=== PATIENT | male | born 1980 | race Caucasian/White ===

== ENCOUNTER 2018-01-08 14:26 | Emergency (ER) | payer OTHER, SELFPAY | END 2018-01-08 19:20 | disposition home or self-care (01) | PROVIDERS: Emergency Provider Nurse Practitioner Family; Visit Provider Nurse Practitioner Family | DX: R10.9 Unspecified abdominal pain (principal) | CPT/HCPCS: 74177; 80053; 81003; 83690; 85025; 96361; 96374; 99058; 99284; J1885; Q9967 ==

== ENCOUNTER 2022-08-03 09:33 | Emergency (ER) | payer OTHER, SELFPAY ==
[2022-08-03 09:38] VITALS: BP 120/85; PULSE 90; RESP 14; TEMP 36.2; O2SAT 98; BMI 26.6
--- NOTE | 2022-08-03 09:40 | DI.RAD.S_ITS ---
PROCEDURE: XR ANKLE RT MIN 3V INDICATIONS: rolled ankle TECHNIQUE: 3 views of the ankle were acquired. COMPARISON: [facility] [place], CR, XR FOOT 3+ VIEWS RIGHT, 07/03/2022, 11:58. FINDINGS: Bones: On the frontal view, a small ill-defined density is present interposed between the lateral process of the talus and fibular tip, which could represent an acute fracture fragment. No definite donor site identified however. Ankle mortise is normally aligned. No suspicious bony lesions. Soft tissues: A tibiotalar joint effusion is present. There is lateral soft tissue swelling. IMPRESSION: A small ill-defined density is present interposed between the lateral process of the talus and fibular tip which could represent an acute fracture fragment. No definite donor site identified however. If symptoms persist or otherwise clinically indicated, follow-up radiographs and/or CT may be helpful for further evaluation. Dictated by: Abel Lynch M.D. on 08/03/2022 at 10:10 Approved by: Abel Lynch M.D. on 08/03/2022 at 10:17
--- NOTE | 2022-08-03 11:40 | ED_ITS ---
HPI - Extremity Injury (Lower) General Chief Complaint: Extremity Injury, Lower Stated Complaint: rolled ankle think its broken Time Seen by Provider: 08/03/22 11:33 Source: patient Mode of arrival: Wheelchair History of Present Illness HPI Narrative: Patient is a healthy 41-year-old male who presents with right ankle pain and swelling. He was at work when he tripped on a cable bit rolling his ankle. He initially was ambulatory but now is not ambulatory. Having significant pain and swelling. Related Data Previous Rx's Medication Instructions Recorded hydrocodone 5 mg-acetaminophen 325 1 tab PO Q6H PRN pain #10 tabs 08/03/22 mg tablet Allergies Allergy/AdvReac Type Severity Reaction Status Date / Time No Known Drug Allergies Allergy Verified 08/03/22 09:38 Review of Systems Review of Systems Narrative: GENERAL: Denies chills,fever HEENT: Denies throat pain RESPIRATORY: Denies dyspnea, cough, wheezing CARDIOVASCULAR: Denies chest pain, palpitations GASTROINTESTINAL: Denies nausea, vomiting MUSCULOSKELETAL: See HPI SKIN: No rash, no laceration, no pruritus NEUROLOGIC: Denies weakness, dizziness, headache, numbness 8 point review of systems is negative except for those stated above and HPI Patient History Social History Smoking Status: Current every day smoker Smoking Status: Current every day smoker alcohol intake frequency: holidays/special occasions only Substance Use Type: does not use Exam Initial Vital Signs Initial Vital Signs: Vital Signs Temperature 97.2 F L 08/03/22 09:38 Pulse Rate 90 08/03/22 09:38 Respiratory Rate 14 08/03/22 09:38 Blood Pressure 120/85 08/03/22 09:38 Pulse Oximetry 98 08/03/22 09:38 Oxygen Delivery Method 08/03/22 09:38 GENERAL: Well-appearing, well-nourished and in no acute distress. CARDIOVASCULAR: peripheral pulses in tact, cap refill <2 sec RESPIRATORY: No respiratory distress, speaks in full sentences without difficulty EXTREMITIES: Normal range of motion, no clubbing or edema. Neurovascularly intact Right lower extremity significant lateral swelling over lateral malleoli distal pedal pulses intact Achilles nontender calf is soft knee states NEUROLOGICAL: Cranial nerves II through XII grossly intact. Normal gait and speech. SKIN: Warm, dry, no petechiae, no rashes or lesions. Course Orders Ordered: ED Orders 08/03/22 09:40 XR ankle RT min 3V Stat Vital Signs Vital signs: Vital Signs - 8 hr 08/03/22 12:05 Pulse Rate 75 Respiratory Rate 18 Blood Pressure 120/80 Pulse Oximetry 98 Oxygen Delivery Method Room Air MDM - Extremity Injury (Lower) Imaging Data Extremity x-ray #1: Radiologist's Impression: Signed Patient: Dileep Lucio MR#: [id number] : 1980 Acct:[id number] Age/Sex: 41 / M Date of Service: 08/03/22 Loc: ED Accession Number: [id number] ?? Procedure: XR ankle RT min 3V Ordering Provider: Tyra Guerrier D.O. PROCEDURE:? XR ANKLE RT MIN 3V ? INDICATIONS:? rolled ankle ? TECHNIQUE:? 3 views of the ankle were acquired.? ? COMPARISON:? [facility] [place], CR, XR FOOT 3+ VIEWS RIGHT, 07/03/2022, 11:58. ? FINDINGS:? ? Bones:? On the frontal view, a small ill-defined density is present interposed between the lateral process of the talus and fibular tip, which could represent an acute fracture fragment.? No definite donor site identified however.? Ankle mortise is normally aligned. ?No suspicious bony lesions.? ? Soft tissues:? A tibiotalar joint effusion is present.? There is lateral soft tissue swelling. ? IMPRESSION:? A small ill-defined density is present interposed between the lateral process of the talus and fibular tip which could represent an acute fracture fragment.? No definite donor site identified however.? If symptoms persist or otherwise clinically indicated, follow-up radiographs and/or CT may be helpful for further evaluation. ? Dictated by: Abel Lynch M.D. on 08/03/2022 at 10:10 ? ? Approved by: Abel Lynch M.D. on 08/03/2022 at 10:17 [facility] Narrative Medical decision making narrative: X-ray reports possible fracture fragment. Significant swelling laterally. Patient is put in orthopedic boot with crutches treated as a fracture. Recommend outpatient follow-up with repeat x-ray in about 7-10 days Discharge Plan Departure Patient Disposition: Home Clinical Impression: Ankle fracture, right Instructions: Ankle Fracture Activity Restrictions/Additional Instructions: *You have been diagnosed with possible right ankle fracture *What to do: At this time where ortho boot at all times use crutches. If you are able to weightbear that is okay if not been dominant. Elevate and ice. I do recommend a repeat x-ray in about 7-10 days *Continue to take medications as directed Ibuprofen 600 mg every 6 hours if needed for [id number] Perry 1 tablet every 6 hours if needed for severe pain or at nighttime to help with sleeping *Follow up with your primary care provider in 2-3 days or call [phone] *Return to ER if you should have increasing pain swelling or any new, worsening or concerning symptoms Prescriptions: New hydrocodone-acetaminophen 5-325 mg tablet 1 tab PO Q6H PRN (Reason: pain) Qty: 10 0RF Referrals: [facility] [Provider Group] Juan A Yeung ARNP [Primary Care Provider] - Visit Report Forms: Patient Portal/API
[2022-08-03 12:05] VITALS: BP 120/80; PULSE 75; RESP 18; O2SAT 98
== END 2022-08-03 12:05 | disposition home or self-care (01) ==
PROVIDERS: Emergency Provider Emergency Medicine; PCP Nurse Practitioner Family
DX: S92.141A Displaced dome fracture of right talus, initial encounter for closed fracture (principal); W18.40XA Slipping, tripping and stumbling without falling, unspecified, initial encounter
CPT/HCPCS: 73610; 99282; 99283